=== PATIENT | male | born 1995 | race Caucasian/White ===

== ENCOUNTER 2018-05-04 16:24 | Emergency (ER) | payer SELFPAY ==
[~2018-05-04] VITALS: Ht 182.9 cm; Wt 113.4 kg
[2018-05-04] MEDS ORDERED: ONDANSETRON ODT 4 MG TAB.RAPDIS ONE (16:45)
[2018-05-04 16:57] VITALS: BP 167/71
[2018-05-04] MEDS ORDERED: KETOROLAC 60 MG/2 ML VIAL. IM ONE (17:00)
[2018-05-04] MEDS ORDERED: ONDANSETRON ODT 4 MG TAB.RAPDIS PO ONE (17:00)
[2018-05-04 17:07] LABS: BARBITURATES NEG (NEG); BENZODIAZEPINES NEG (NEG); CANNABINOIDS NEG (NEG); COCAINE NEG (NEG); METHADONE NEG (NEG); OPIATES NEG (NEG); PHENCYCLIDINE NEG (NEG)
[2018-05-04 17:08] LABS: CLARITY,URINE CLEAR; COLOR,URINE YELLOW; GLUCOSE,URINE NEG (NEG)
[2018-05-04 17:09] LABS: BACTERIA,URINE 0 /HPF (0-FEW); BILIRUBIN,URINE NEG (NEG); NITRITE,URINE NEG (NEG); RBC,URINE 0 /HPF (0-2); SQUAMOUS EPITHELIAL CELL,UR OCC /LPF; UROBILINOGEN,URINE 0.2 mg/dL (0.2 mg/dL); WBC,URINE OCC /HPF (0-4)
[2018-05-04 17:10] LABS: AMPHETAMINE/METHAMPHETAMINE NEG (NEG)
--- NOTE | 2018-05-04 17:26 | PHYS DOC ---
Past History Past Medical History: No Pertinent History Past Surgical History: Appendectomy Alcohol Use: None Drug Use: None Adult General Chief Complaint Chief Complaint: TESTICULAR PAIN OR INJURY HPI HPI Patient is a 22 year old male who presents with complaining of testicular pain. Patient complaining of gradual onset of left testicular pain for the last 2 weeks that getting worse for the last 3 days as a constant sharp pain and rated his pain 10 over 10. Patient denies injury, discharge, history of the same pain or STD, abdominal pain and nausea and vomiting. Review of Systems Review of Systems Constitutional: Denies fever or chills [] Eyes: Denies change in visual acuity, redness, or eye pain [] HENT: Denies nasal congestion or sore throat [] Respiratory: Denies cough or shortness of breath [] Cardiovascular: No additional information not addressed in HPI [] GI: Denies abdominal pain, nausea, vomiting, bloody stools or diarrhea [] : Denies dysuria or hematuria [] Musculoskeletal: Denies back pain or joint pain [] Integument: Denies rash or skin lesions [] Neurologic: Denies headache, focal weakness or sensory changes [] Endocrine: Denies polyuria or polydipsia [] All other systems were reviewed and found to be within normal limits, except as documented in this note. Current Medications Current Medications Current Medications Medications (Trade) Dose Ordered Sig/Magalie Start Time Stop Time Status Last Admin Dose Admin Ketorolac Tromethamine (Toradol Im) 60 mg 1X ONCE 05/04/18 17:00 05/04/18 17:02 DC 05/04/18 17:17 60 MG Ondansetron HCl (Zofran Odt) 4 mg STK-MED ONCE 05/04/18 16:45 05/04/18 16:46 DC Allergies Allergies Allergies Coded Allergies Type Severity Reaction Last Updated Verified metoclopramide Allergy Unknown 05/04/18 Yes Physical Exam Physical Exam Constitutional: Well developed, well nourished, moderate acute distress, non- toxic appearance. [] HENT: Normocephalic, atraumatic Eyes: PERRLA, EOMI, conjunctiva normal, no discharge. [] Neck: Normal range of motion, no tenderness, supple, no stridor. [] Cardiovascular:Heart rate regular rhythm, no murmur [] Lungs & Thorax: Bilateral breath sounds clear to auscultation [] Abdomen: Bowel sounds normal, soft, no tenderness, no masses, no pulsatile masses. 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 [] Back: No tenderness, no CVA tenderness. [] Extremities: No tenderness, no cyanosis, no clubbing, ROM intact, no edema. [] Neurologic: Alert and oriented X 3, normal motor function, normal sensory function, no focal deficits noted. [] Psychologic: Affect anxious, judgement normal, mood normal. [] Current Patient Data Vital Signs Vital Signs Date Time Temp Pulse Resp B/P (MAP) Pulse Ox O2 Delivery O2 Flow Rate FiO2 05/04/18 16:57 98.3 118 18 97 Lab Results Laboratory Tests Test 05/04/18 16:40 Urine Collection Type Unknown Urine Color Yellow Urine Clarity Clear Urine pH 8.5 Urine Specific [place] 1.020 Urine Protein Trace (NEG-TRACE) Urine Glucose (UA) Neg mg/dL (NEG) Urine Ketones (Stick) Neg mg/dL (NEG) Urine Blood Neg (NEG) Urine Nitrite Neg (NEG) Urine Bilirubin Neg (NEG) Urine Urobilinogen Dipstick 0.2 mg/dL (0.2 mg/dL) Urine Leukocyte Esterase Neg (NEG) Urine RBC 0 /HPF (0-2) Urine WBC Occ /HPF (0-4) Urine Squamous Epithelial Cells Occ /LPF Urine Bacteria 0 /HPF (0-FEW) Urine Mucus Mod /LPF Urine Opiates Screen Neg (NEG) Urine Methadone Screen Neg (NEG) Urine Barbiturates Neg (NEG) Urine Phencyclidine Screen Neg (NEG) Urine Amphetamine/Methamphetamine Neg (NEG) Urine Benzodiazepines Screen Neg (NEG) Urine Cocaine Screen Neg (NEG) Urine Cannabinoids Screen Neg (NEG) Urine Ethyl Alcohol Neg (NEG) EKG EKG [] Radiology/Procedures Radiology/Procedures [address] [address] IMAGING REPORT Signed PATIENT: RONALD MARLOW ACCOUNT: [id number] : 1995 LOCATION: ER AGE: 22 SEX: M EXAM STATUS: REG ER ORD. PHYSICIAN: DHARA SANTOYO MD REASON: left testicular pain PROCEDURE: TESTICULAR/SCROTUM Indication:LEFT TESTICULAR PAIN TECHNIQUE: Grayscale, color Doppler and spectral waveform is of the testicles obtained. COMPARISON:None FINDINGS: The right testicle measures 4.4 x 2.5 x 3.8 cm and is homogeneous in echogenicity without focal lesion. Right testicle demonstrates evidence of blood flow. The epididymal head is in normal limits with a 4 mm simple cyst in the epididymal head. The left testicle measures 4.4 x 2.4 x 3.0 cm and is homogeneous in echogenicity without focal lesion. The left testicle demonstrates evidence of blood flow. The epididymal head is within normal limits with a 4 mm simple appearing cyst in the epididymal head. No hydrocele bilaterally. IMPRESSION: 1. No focal testicular lesion. 2. Bilateral testicles demonstrate evidence of blood flow. Electronically signed by: Toney Soto DO (05/04/2018 5:29 PM) [facility] DICTATED AND SIGNED BY: TONEY SOTO DO DATE: 05/04/181726 CC: DHARA SANTOYO MD; PCP,OSIEL ~ Course & Med Decision Making Course & Med Decision Making Pertinent Labs and Imaging studies reviewed. (See chart for details) Evaluation of patient in ER showed 22-year-old male patient with complaining of left scapular pain for 2 weeks that getting worse for 3 days. Patient had unremarkable exam of to school and except for sensitivity with touch of his testicle. Testicle ultrasound showed epididymal cyst without sign of other problems. Plan to discharge patient home with diagnose of left testicular pain. Dragon Disclaimer Dragon Disclaimer This electronic medical record was generated, in whole or in part, using a voice recognition dictation system. Departure Departure: Impression: Primary Impression: Left testicular pain Additional Impression: Epididymal cyst Disposition: HOME, SELF-CARE (at 1742) Condition: IMPROVED Referrals: PCPOSIEL (PCP) Patient Instructions: Epididymitis Additional Instructions: Drink plenty of liquids Follow-up with your primary care physician in 3-5 days Return to ER if not getting better Scripts Naproxen (NAPROSYN) 500 Mg Tablet 500 MG PO BID for pain, #20 TAB Prov: DHARA SANTOYO MD 05/04/18 Ciprofloxacin Hcl (CIPRO) 250 Mg Tablet 1 TAB PO BID for urinary tract infection, #14 TAB Prov: DHARA SANTOYO MD 05/04/18 Problem Qualifiers DHARA SANTOYO MD May 04, 2018 17:26
--- NOTE | 2018-05-04 17:32 | RAD ---
Indication:LEFT TESTICULAR PAIN TECHNIQUE: Grayscale, color Doppler and spectral waveform is of the testicles obtained. COMPARISON:None FINDINGS: The right testicle measures 4.4 x 2.5 x 3.8 cm and is homogeneous in echogenicity without focal lesion. Right testicle demonstrates evidence of blood flow. The epididymal head is in normal limits with a 4 mm simple cyst in the epididymal head. The left testicle measures 4.4 x 2.4 x 3.0 cm and is homogeneous in echogenicity without focal lesion. The left testicle demonstrates evidence of blood flow. The epididymal head is within normal limits with a 4 mm simple appearing cyst in the epididymal head. No hydrocele bilaterally. IMPRESSION: 1. No focal testicular lesion. 2. Bilateral testicles demonstrate evidence of blood flow. Electronically signed by: oTney Hicks DO (05/04/2018 5:29 PM) [facility]
[2018-05-04] MEDS ORDERED: NAPR-683 PO (17:47)
[2018-05-04] MEDS ORDERED: CIPR250T30 PO (17:47)
== END 2018-05-04 17:58 | disposition home or self-care (01) ==
LOC: ER 16:24
DX: N50.3 Cyst of epididymis (principal); Z88.8 Allergy status to other drugs, medicaments and biological substances
CPT/HCPCS: 36415; 76870; 80307; 81001; 96372; 99284; J1885; Q0162

== ENCOUNTER 2018-12-24 14:34 | Emergency (ER) | payer SELFPAY ==
[~2018-12-24] VITALS: Ht 182.9 cm; Wt 104.3 kg
[~2018-12-24 14:34] MED LIST: CIPR250T30 PO; NAPR-683 PO
[2018-12-24] MEDS ORDERED: ASPIRIN 81 MG TAB.CHEW PO ONE (15:00)
[2018-12-24 15:01] LABS: BASO % 0 % (0-3); EOS % 0 % (0-3); HEMATOCRIT 44.5 % (39.0-53.0); HEMOGLOBIN 15.1 g/dL (13.0-17.5); LYMPH # 1.8 x10^3/uL (1.0-4.8); LYMPH % 18 % (24-48); MEAN CORPUSCULAR HEMOGLOBIN 30 pg (25-35); MEAN CORPUSCULAR HGB CONC 34 g/dL (31-37); MEAN CORPUSCULAR VOLUME 89 fL (79-100); MONO # 0.9 x10^3/uL (0.0-1.1); MONO % 9 % (0-9); NEUT # 7.2 x10^3uL (1.8-7.7); NEUT % 73 % (31-73); PLATELET COUNT 234 x10^3/uL (140-400); RED CELL DISTRIBUTION WIDTH 13.1 % (11.5-14.5); WHITE BLOOD COUNT 9.8 x10^3/uL (4.0-11.0)
--- NOTE | 2018-12-24 15:08 | RAD ---
AP and Lateral Views of the Chest 12/24/2018 2:47 PM Indication: Chest pain Comparison: None Findings: No pneumothorax or pleural effusion is seen. Mild linear opacity in the left lung base may represent discoid atelectasis or mild scarring. No other focal consolidative infiltrates is seen. Heart size is normal. Bony thorax is grossly intact. IMPRESSION: Possible mild left basilar discoid atelectasis or scarring. Otherwise unremarkable chest radiograph Electronically signed by: Hilario Smith MD (12/24/2018 3:05 PM) [facility]
[2018-12-24 15:14] LABS: ALBUMIN 4.8 g/dL (3.4-5.0); ALBUMIN/GLOBULIN RATIO 1.3 (1.0-1.7); CALCIUM 9.7 mg/dL (8.5-10.1); CREATININE 0.9 mg/dL (0.7-1.3); GFR 107.6; POTASSIUM 3.4 mmol/L (3.5-5.1); TOTAL BILIRUBIN 0.5 mg/dL (0.2-1.0); TOTAL PROTEIN 8.5 g/dL (6.4-8.2)
[2018-12-24] MEDS ORDERED: IV NORMAL SALINE 1,000ML 1,000 ML IV ONE (15:15)
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
[2018-12-24 15:30] LABS: AMPHETAMINE/METHAMPHETAMINE NEG (NEG); BARBITURATES NEG (NEG); BENZODIAZEPINES NEG (NEG); CANNABINOIDS NEG (NEG); COCAINE NEG (NEG); METHADONE NEG (NEG); OPIATES NEG (NEG); PHENCYCLIDINE NEG (NEG)
[2018-12-24 15:33] LABS: BACTERIA,URINE 0 /HPF (0-FEW); BILIRUBIN,URINE NEG (NEG); CLARITY,URINE CLEAR; COLOR,URINE YELLOW; GLUCOSE,URINE NEG (NEG); NITRITE,URINE NEG (NEG); RBC,URINE 0 /HPF (0-2); UROBILINOGEN,URINE 0.2 mg/dL (0.2 mg/dL); WBC,URINE 0 /HPF (0-4)
[2018-12-24] MEDS ORDERED: HYDR25TA PO (15:59)
[2018-12-24 16:13] VITALS: BP 143/82
[2018-12-24] MEDS ORDERED: ACETAMINOPHEN 325 MG TABLET PO ONE (16:15)
--- NOTE | 2018-12-24 23:31 | EKG ---
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
== END 2018-12-24 16:12 | disposition home or self-care (01) ==
LOC: ER 14:34
DX: R07.89 Other chest pain (principal); M54.5 Low back pain; R11.0 Nausea; G89.29 Other chronic pain; Z79.899 Other long term (current) drug therapy; Z79.82 Long term (current) use of aspirin; Z88.8 Allergy status to other drugs, medicaments and biological substances
CPT/HCPCS: 36415; 71046; 80053; 80307; 81001; 84484; 85025; 93005; 99285-25; J7030

== ENCOUNTER 2019-01-09 20:45 | Emergency (ER) | payer SELFPAY ==
[~2019-01-09] VITALS: Ht 180.3 cm; Wt 103.0 kg
[~2019-01-09 20:45] MED LIST changes: +HYDR25TA PO
--- NOTE | 2019-01-09 20:57 | ED.ADGEN ---
Past History Past Medical History: Anxiety, Depression, Migraines, Sciatica, Other Additional Past Medical Histor: Chronic pain Past Surgical History: Appendectomy Alcohol Use: Rarely Drug Use: Marijuana Adult General Chief Complaint Chief Complaint ".. I had some more brain zaps.. or shock like sensations to my head... ".. " I had the same thing earlier this month.. " .. " I have not been able to see Dr. Strauss yet... "'''.. After these Zaps ..I get confused.." HPI HPI Patient is a 23 year old male who presents with above hx and complaints headache after "Head Zaps". Patient has had similar instances in the past most recently one on 12/24 of this month. Patient does have a past history of anxiety, chronic pain, chronic lumbar and sciatic pain, and migraines. Patient has not followed up with [facility] A since last visit.. Patient in the past was depended on narcotics for his chronic pain and also benzodiazepines for muscle spasms. P atient reportedly weaned himself off all anxiety meds. Patient reportedly has had previous CT of head which was negative. Reportedly a prior CT and MRI of lumbar spine shows degenerative joint changes and disc disease with sciatica. Patient denies any history immunosuppression, travel or specific ill contacts. No recent trauma. No specific history of seizure disorder. Review of Systems Review of Systems Constitutional: Denies fever or chills [] Eyes: Denies change in visual acuity, redness, or eye pain [] HENT: Denies nasal congestion or sore throat [] Respiratory: Denies cough or shortness of breath [] Cardiovascular: No additional information not addressed in HPI [] GI: Denies abdominal pain, nausea, vomiting, bloody stools or diarrhea [] : Denies dysuria or hematuria [] Musculoskeletal: Denies back pain or joint pain [] Integument: Denies rash or skin lesions [] Neurologic: Complaints of headache after "head zaps", focal weakness or sensory changes [] Endocrine: Denies polyuria or polydipsia [] All other systems were reviewed and found to be within normal limits, except as documented in this note. Family History Family History Noncontributory Current Medications Current Medications Current Medications Medications (Trade) Dose Ordered Sig/Magalie Start Time Stop Time Status Last Admin Dose Admin Acetaminophen (Tylenol) 1,000 mg 1X ONCE 01/09/19 21:30 01/09/19 21:31 DC 01/09/19 21:21 1,000 MG Enoxaparin Sodium (Lovenox 100mg Syringe) 100 mg 1X ONCE 01/09/19 22:30 01/09/19 22:31 DC 01/09/19 22:57 100 MG Fentanyl Citrate (Fentanyl 2ml Vial) 50 mcg 1X ONCE 01/09/19 23:30 01/09/19 23:31 DC 01/09/19 22:58 50 MCG Lactated Ringer's 1,000 ml @ 1,000 mls/hr Q1H 01/09/19 21:30 01/09/19 22:29 DC 01/09/19 21:22 1,000 MLS/HR Lorazepam (Ativan) 1 mg 1X ONCE 01/09/19 21:30 01/09/19 21:31 DC 01/09/19 21:21 1 MG Allergies Allergies Allergies Coded Allergies Type Severity Reaction Last Updated Verified metoclopramide Allergy Intermediate 01/09/19 Yes Physical Exam Physical Exam Constitutional: Well developed, well nourished, moderate acute distress, non- toxic appearance. [] HENT: Normocephalic, atraumatic, bilateral external ears normal, oropharynx moist, no oral exudates, nose normal. [] Eyes: PERRLA, EOMI, conjunctiva normal, no discharge. [] Neck: Normal range of motion, no tenderness, supple, no stridor. [] Cardiovascular: Tachycardia Heart rate regular rhythm, no murmur [] Lungs & Thorax: Bilateral breath sounds equal at apexes on auscultation [] Abdomen: Bowel sounds normal, soft, no tenderness, no masses, no pulsatile masses. [] Old surgery scar. Skin: Warm, dry, no erythema, no rash. [] Back: No tenderness, no CVA tenderness. [] Extremities: No tenderness, no cyanosis, no clubbing, ROM intact, no edema. [] Neurologic: Alert and oriented X 3, normal motor function, normal sensory function, no focal deficits noted. Right-hand dominant. No drift. Greenhouse [employer] Nursery Transplanter equal. DTRs +2 patella and brachial. Psychologic: Affect anxious, judgement normal, mood normal. [] Current Patient Data Vital Signs Vital Signs Date Time Temp Pulse Resp B/P (MAP) Pulse Ox O2 Delivery O2 Flow Rate FiO2 01/09/19 23:06 104 18 139/94 (109) 98 Room Air 01/09/19 20:57 99.1 Lab Results Laboratory Tests Test 01/09/19 20:55 01/09/19 21:30 Urine Collection Type Unknown Urine Color Straw Urine Clarity Clear Urine pH 7.0 Urine Specific [place] 1.010 Urine Protein Neg (NEG-TRACE) Urine Glucose (UA) Neg mg/dL (NEG) Urine Ketones (Stick) Neg mg/dL (NEG) Urine Blood Neg (NEG) Urine Nitrite Neg (NEG) Urine Bilirubin Neg (NEG) Urine Urobilinogen Dipstick 0.2 mg/dL (0.2 mg/dL) Urine Leukocyte Esterase Neg (NEG) Urine RBC 0 /HPF (0-2) Urine WBC 0 /HPF (0-4) Urine Squamous Epithelial Cells None /LPF Urine Bacteria 0 /HPF (0-FEW) Urine Opiates Screen Neg (NEG) Urine Methadone Screen Neg (NEG) Urine Barbiturates Neg (NEG) Urine Phencyclidine Screen Neg (NEG) Urine Amphetamine/Methamphetamine Neg (NEG) Urine Benzodiazepines Screen Neg (NEG) Urine Cocaine Screen Neg (NEG) Urine Cannabinoids Screen Neg (NEG) Urine Ethyl Alcohol Pos (NEG) White Blood Count 8.4 x10^3/uL (4.0-11.0) Red Blood Count 5.53 x10^6/uL (4.30-5.70) Hemoglobin 16.7 g/dL (13.0-17.5) Hematocrit 49.1 % (39.0-53.0) Mean Corpuscular Volume 89 fL (79-100) Mean Corpuscular Hemoglobin 30 pg (25-35) Mean Corpuscular Hemoglobin Concent 34 g/dL (31-37) Red Cell Distribution Width 13.2 % (11.5-14.5) Platelet Count 242 x10^3/uL (140-400) Neutrophils (%) (Auto) 78 % (31-73) H Lymphocytes (%) (Auto) 15 % (24-48) L Monocytes (%) (Auto) 6 % (0-9) Eosinophils (%) (Auto) 0 % (0-3) Basophils (%) (Auto) 0 % (0-3) Neutrophils # (Auto) 6.5 x10^3uL (1.8-7.7) Lymphocytes # (Auto) 1.3 x10^3/uL (1.0-4.8) Monocytes # (Auto) 0.5 x10^3/uL (0.0-1.1) Eosinophils # (Auto) 0.0 x10^3/uL (0.0-0.7) Basophils # (Auto) 0.0 x10^3/uL (0.0-0.2) Erythrocyte Sedimentation Rate 7 (0-15) Prothrombin Time 10.5 SEC (9.4-11.4) Prothrombin Time INR 1.0 (0.9-1.1) Activated Partial Thromboplast Time 29 SEC (23-33) D-Dimer (Lay) 0.39 mg/L (0.00-0.50) Sodium Level 144 mmol/L (136-145) Potassium Level 3.8 mmol/L (3.5-5.1) Chloride Level 105 mmol/L (98-107) Carbon Dioxide Level 24 mmol/L (21-32) Anion Gap 15 (6-14) H Blood Urea Nitrogen 11 mg/dL (8-26) Creatinine 0.9 mg/dL (0.7-1.3) Estimated GFR (Cockcroft-Gault) 106.5 Glucose Level 109 mg/dL (70-99) H Calcium Level 9.9 mg/dL (8.5-10.1) Magnesium Level 2.0 mg/dL (1.8-2.4) Total Bilirubin 0.3 mg/dL (0.2-1.0) Direct Bilirubin 0.1 mg/dL (0.0-0.2) Aspartate Amino Transferase (AST) 19 U/L (15-37) Alanine Aminotransferase (ALT) 45 U/L (16-63) Alkaline Phosphatase 119 U/L (46-116) H Creatine Kinase 154 U/L (39-308) Troponin I Quantitative < 0.017 ng/mL (0-0.055) Total Protein 8.8 g/dL (6.4-8.2) H Albumin 5.1 g/dL (3.4-5.0) H Ethyl Alcohol Level 17 mg/dL (0-10) H EKG EKG My interpretation EKG shows a sinus tachycardia at 109 bpm. No findings acute STEMI but some anterior lateral changes[] Radiology/Procedures Radiology/Procedures [][address] [id number] IMAGING REPORT Signed PATIENT: RONALD MARLOW ACCOUNT: [id number] : 1995 LOCATION: ER AGE: 23 SEX: M EXAM STATUS: REG ER ORD. PHYSICIAN: GOPI HENAO MD REASON: Head ache, Brain "Zaps" with confusion PROCEDURE: CT HEAD WO CONTRAST Exam: CT head INDICATION: Headache TECHNIQUE: Sequential axial images through the head were obtained without the administration of IV contrast. Comparisons: None FINDINGS: Hypodensity in the area of the left sigmoid/transverse sinus. Additionally there is a area of rounded hyperdensity series 2 image 12 just above this area measuring approximately 1.9 cm in diameter. No acute vascular territory infarction is identified. Rowland-white distinction is preserved. The ventricular system is within normal limits without compression hydrocephalus. The basal cisterns are well maintained. The visualized portions of the paranasal sinuses and mastoid air cells are well-pneumatized. No acute fractures. IMPRESSION: In the left posterior cranial fossa there is a round hyperdensity measuring 1.8 cm in diameter with possible hypodensity within the expected location of the sigmoid/transverse sinus. Differential considerations include sinus thrombosis. Given the possibility of a rounded mass lesion MRI brain with contrast if possible is recommended for further evaluation. Exposure: One or more of the following in the visualized dose reduction techniques were utilized for this examination: 1. Automated exposure control 2. Adjustment of the MA and/or KV according to patient size 3. Use of iterative of reconstructive technique FOR INTERNAL CODING PURPOSES Critical result: Findings discussed with GOPI HENAO at 01/09/2019 9:39 PM. RESULT CODE: (C) Electronically signed by: Thuan Lehman MD (01/09/2019 9:41 PM) [facility] DICTATED AND SIGNED BY: THUAN LEHMAN MD DATE: 01/09/192140 CC: GOPI HENAO MD; ALICIA FIGUEROA MD ~ Course & Med Decision Making Course & Med Decision Making Pertinent Labs and Imaging studies reviewed. (See chart for details) Discussed presentation, testing and treatment plan with Dr. Cross. Will transfer to [facility] for MRI to evaluate for possible sigmoid sinus thrombosis versus mass. [] Final Impression Final Impression 1. Headache " Brain Zaps"[] 2. Possible sigmoid sinus thrombosis versus mass- CT 3. Elevated T Protein and Albumen 8.8/5.1 4. Hx of Anxiety Disorder 5. Hx. of Chronic Pain- Sciatica Dragon Disclaimer Dragon Disclaimer This electronic medical record was generated, in whole or in part, using a voice recognition dictation system. Dragon Disclaimer This chart was dictated in whole or in part using Voice Recognition software in a busy, high-work load, and often noisy Emergency Department environment. It may contain unintended and wholly unrecognized errors or omissions. GOPI HENAO MD Jan 09, 2019 20:57
--- NOTE | 2019-01-09 21:20 | EKG ---
[address] [address] Test Date: 2019-01-09 Test Time: 21:18:07 Pat Name: RONALD MARLOW Department: Room: Gender: M Color Dipper: : 1995 Requested By: GOPI HENAO Order Number: [id number] Reading MD: Measurements Intervals [place] Rate: 109 P: -7 [place]: 152 QRS: 31 QRSD: 92 T: -9 QT: 300 QTc: 405 Interpretive Statements SINUS TACHYCARDIA LEFT ATRIAL ABNORMALITY QRS(T) CONTOUR ABNORMALITY CONSIDER ANTEROLATERAL MYOCARDIAL DAMAGE T ABNORMALITY IN INFERIOR LEADS ABNORMAL ECG RI6.01 Compared to ECG 12/24/2018 14:41:30 Atrial abnormality now present T-wave abnormality now present
[2019-01-09] MEDS ORDERED: LORazepam 1 MG TABLET PO ONE (21:30)
[2019-01-09] MEDS ORDERED: IV RINGERS SOLUTION,LACTATED 1,000 ML IV SCH (21:30)
[2019-01-09] MEDS ORDERED: ACETAMINOPHEN 500 MG TABLET PO ONE (21:30)
[2019-01-09 21:34] LABS: BARBITURATES NEG (NEG); BENZODIAZEPINES NEG (NEG); CANNABINOIDS NEG (NEG); COCAINE NEG (NEG); METHADONE NEG (NEG); OPIATES NEG (NEG); PHENCYCLIDINE NEG (NEG)
[2019-01-09 21:42] LABS: BACTERIA,URINE 0 /HPF (0-FEW); BILIRUBIN,URINE NEG (NEG); CLARITY,URINE CLEAR; COLOR,URINE STRAW; GLUCOSE,URINE NEG (NEG); NITRITE,URINE NEG (NEG); RBC,URINE 0 /HPF (0-2); UROBILINOGEN,URINE 0.2 mg/dL (0.2 mg/dL); WBC,URINE 0 /HPF (0-4)
--- NOTE | 2019-01-09 21:44 | RAD ---
Exam: CT head INDICATION: Headache TECHNIQUE: Sequential axial images through the head were obtained without the administration of IV contrast. Comparisons: None FINDINGS: Hypodensity in the area of the left sigmoid/transverse sinus. Additionally there is a area of rounded hyperdensity series 2 image 12 just above this area measuring approximately 1.9 cm in diameter. No acute vascular territory infarction is identified. Rowland-white distinction is preserved. The ventricular system is within normal limits without compression hydrocephalus. The basal cisterns are well maintained. The visualized portions of the paranasal sinuses and mastoid air cells are well-pneumatized. No acute fractures. IMPRESSION: In the left posterior cranial fossa there is a round hyperdensity measuring 1.8 cm in diameter with possible hypodensity within the expected location of the sigmoid/transverse sinus. Differential considerations include sinus thrombosis. Given the possibility of a rounded mass lesion MRI brain with contrast if possible is recommended for further evaluation. Exposure: One or more of the following in the visualized dose reduction techniques were utilized for this examination: 1. Automated exposure control 2. Adjustment of the MA and/or KV according to patient size 3. Use of iterative of reconstructive technique FOR INTERNAL CODING PURPOSES Critical result: Findings discussed with GOPI HENAO at 01/09/2019 9:39 PM. RESULT CODE: (C) Electronically signed by: Thuan Huitron MD (01/09/2019 9:41 PM) [facility]
[2019-01-09 21:52] LABS: AMPHETAMINE/METHAMPHETAMINE NEG (NEG)
[2019-01-09 22:04] LABS: BASO % 0 % (0-3); EOS % 0 % (0-3); HEMATOCRIT 49.1 % (39.0-53.0); HEMOGLOBIN 16.7 g/dL (13.0-17.5); LYMPH # 1.3 x10^3/uL (1.0-4.8); LYMPH % 15 % (24-48); MEAN CORPUSCULAR HEMOGLOBIN 30 pg (25-35); MEAN CORPUSCULAR HGB CONC 34 g/dL (31-37); MEAN CORPUSCULAR VOLUME 89 fL (79-100); MONO # 0.5 x10^3/uL (0.0-1.1); MONO % 6 % (0-9); NEUT # 6.5 x10^3uL (1.8-7.7); NEUT % 78 % (31-73); PLATELET COUNT 242 x10^3/uL (140-400); RED BLOOD COUNT 5.53 x10^6/uL (4.30-5.70); RED CELL DISTRIBUTION WIDTH 13.2 % (11.5-14.5); WHITE BLOOD COUNT 8.4 x10^3/uL (4.0-11.0)
[2019-01-09 22:06] LABS: ALBUMIN 5.1 g/dL (3.4-5.0); CALCIUM 9.9 mg/dL (8.5-10.1); CREATININE 0.9 mg/dL (0.7-1.3); DIRECT BILIRUBIN 0.1 mg/dL (0.0-0.2); GFR 106.5; POTASSIUM 3.8 mmol/L (3.5-5.1); TOTAL BILIRUBIN 0.3 mg/dL (0.2-1.0); TOTAL PROTEIN 8.8 g/dL (6.4-8.2)
[2019-01-09] MEDS ORDERED: ENOXAPARIN ** NOTE DOSE ** SYRINGE SQ ONE (22:30)
[2019-01-09 23:06] VITALS: BP 139/94
[2019-01-09 23:16] LABS: SEDIMENTATION RATE 7 (0-15)
== END 2019-01-09 23:45 | disposition short-term general hospital (02) ==
LOC: ER 20:45
DX: G43.909 Migraine, unspecified, not intractable, without status migrainosus (principal); R79.82 Elevated C-reactive protein (CRP); R77.0 Abnormality of albumin; F41.9 Anxiety disorder, unspecified; G89.29 Other chronic pain; M54.5 Low back pain; F32.9 Major depressive disorder, single episode, unspecified; Z90.89 Acquired absence of other organs; Z88.8 Allergy status to other drugs, medicaments and biological substances
CPT/HCPCS: 36415; 70450; 80048; 80076; 80307; 81001; 82550; 83735; 84146; 84443; 84484; 85025; 85379; 85610; 85651; 85730; 93005; 96372; 96374; 99285; G0480; J1650; J3010; J7120

== ENCOUNTER 2019-05-14 02:11 | Emergency (ER) | payer OTHER ==
[~2019-05-14] VITALS: Ht 180.3 cm; Wt 103.0 kg
[2019-05-14 02:11] VITALS: BP 139/94
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
[2019-05-14] MEDS ORDERED: oxyCODONE/APAP 5/325 1 TAB TABLET PO ONE (03:00)
== END 2019-05-14 02:50 | disposition home or self-care (01) ==
LOC: ER 02:11
DX: G89.29 Other chronic pain (principal); M54.5 Low back pain; F11.20 Opioid dependence, uncomplicated; F41.9 Anxiety disorder, unspecified; F32.9 Major depressive disorder, single episode, unspecified; G43.909 Migraine, unspecified, not intractable, without status migrainosus; Z90.89 Acquired absence of other organs; Z88.8 Allergy status to other drugs, medicaments and biological substances
CPT/HCPCS: 99281; 99283

== ENCOUNTER 2019-05-15 06:45 | Emergency (ER) | payer OTHER ==
[~2019-05-15] VITALS: Ht 182.9 cm; Wt 101.1 kg
[2019-05-15 06:45] VITALS: BP 141/81
[2019-05-15] MEDS ORDERED: KETOROLAC 15 MG/ML VIAL. IVP ONE (07:30)
[2019-05-15 07:55] LABS: BASO # 0.1 x10^3/uL (0.0-0.2); BASO % 1 % (0-3); EOS # 0.1 x10^3/uL (0.0-0.7); EOS % 1 % (0-3); HEMATOCRIT 46.5 % (39.0-53.0); HEMOGLOBIN 15.9 g/dL (13.0-17.5); LYMPH # 2.8 x10^3/uL (1.0-4.8); LYMPH % 34 % (24-48); MEAN CORPUSCULAR HEMOGLOBIN 31 pg (25-35); MEAN CORPUSCULAR HGB CONC 34 g/dL (31-37); MEAN CORPUSCULAR VOLUME 91 fL (79-100); MONO # 0.8 x10^3/uL (0.0-1.1); MONO % 10 % (0-9); NEUT # 4.3 x10^3uL (1.8-7.7); NEUT % 54 % (31-73); PLATELET COUNT 217 x10^3/uL (140-400); RED BLOOD COUNT 5.09 x10^6/uL (4.30-5.70); RED CELL DISTRIBUTION WIDTH 13.4 % (11.5-14.5)
--- NOTE | 2019-05-15 08:19 | RAD ---
TESTICULAR/SCROTUM History: Right testicular pain. Realtime ultrasonography of the scrotum was performed. Comparison: None. The bilateral testicles demonstrate homogeneous parenchyma without evidence of mass, calcification, or increased Doppler flow. 5 mm right epididymal head cyst. The epididymides are otherwise normal. The right testicle measures 4.4 x 3.5 x 2.4 cm. The left testicle measures 4.3 x 3.4 x 2.5 cm. Trace bilateral hydrocele. Left varicocele. Impression: 1. No evidence of testicular torsion. 2. Trace bilateral hydroceles. 3. Left varicocele. Electronically signed by: Roberto Mays MD (05/15/2019 8:16 AM) [id number]
[2019-05-15 08:52] LABS: CREATININE 0.8 mg/dL (0.7-1.3); POTASSIUM 3.8 mmol/L (3.5-5.1)
[2019-05-15 08:57] LABS: BILIRUBIN,URINE NEG (NEG); CLARITY,URINE CLEAR; COLOR,URINE YELLOW; GLUCOSE,URINE NEG (NEG); NITRITE,URINE NEG (NEG); UROBILINOGEN,URINE 0.2 mg/dL (0.2 mg/dL)
[2019-05-15 08:58] LABS: BACTERIA,URINE 0 /HPF (0-FEW); RBC,URINE 0 /HPF (0-2); WBC,URINE RARE /HPF (0-4)
--- NOTE | 2019-05-15 08:59 | PHYS DOC ---
Past History Past Medical History: Anxiety, Depression, Migraines, Sciatica, Other Additional Past Medical Histor: Chronic back pain, lumbar myopathy, herniated L4 disc Past Surgical History: Appendectomy, Tonsillectomy Smoking: Cigarettes Alcohol Use: Occasionally Drug Use: Marijuana Adult General Chief Complaint Chief Complaint: TESTICULAR PAIN OR INJURY HPI HPI 23-year-old male presents with report of waking this morning with significant pain to right testes. Denies known trauma. Denies fever or chills. Denies dysuria or penile discharge. Denies rash. Denies swelling. Denies prior history of similar. Review of Systems Review of Systems Constitutional: Denies fever or chills Eyes: Denies redness or eye pain HENT: Denies nasal congestion or sore throat Respiratory: Denies cough or shortness of breath Cardiovascular: Denies chest pain or palpitations GI: Denies abdominal pain, nausea, or vomiting : Denies dysuria or hematuria; reports right testicular pain Musculoskeletal: Denies back pain or joint pain Integument: Denies rash or skin lesions Neurologic: Denies headache, focal weakness or sensory changes Complete systems were reviewed and found to be within normal limits, except as documented in this note. Current Medications Current Medications Current Medications Medications (Trade) Dose Ordered Sig/Magalie Start Time Stop Time Status Last Admin Dose Admin Fentanyl Citrate (Fentanyl 2ml Vial) 100 mcg STK-MED ONCE 05/15/19 08:34 05/15/19 08:34 DC Ketorolac Tromethamine (Toradol 15mg Vial) 15 mg 1X ONCE 05/15/19 07:30 05/15/19 07:31 DC 05/15/19 07:23 15 MG Allergies Allergies Allergies Coded Allergies Type Severity Reaction Last Updated Verified metoclopramide Allergy Intermediate 01/09/19 Yes Physical Exam Physical Exam Constitutional: Well developed, well nourished, uncomfortable and in pain, non- toxic appearance HENT: Normocephalic, atraumatic, oropharynx moist Eyes: Conjunctiva normal, no discharge Neck: Normal range of motion, no tenderness, supple Cardiovascular: Heart rate normal, regular rhythm Lungs & Thorax: Bilateral breath sounds clear to auscultation, no wheezing Abdomen: Soft, no tenderness, no rebound tenderness/distention/guarding : External genitalia normal, cremasteric reflex intact, right testicular pain on palpation, no herniation noted, no significant swelling, note scrotal wall thickening, no rash, no meatal blood or discharge Skin: Warm, dry, no erythema, no rash Back: No tenderness, no CVA tenderness Extremities: No tenderness, ROM intact, no edema Neurologic: Alert and oriented X 3, no focal deficits noted Psychologic: Affect normal, judgment normal Current Patient Data Vital Signs Vital Signs Date Time Temp Pulse Resp B/P (MAP) Pulse Ox O2 Delivery O2 Flow Rate FiO2 05/15/19 06:45 98.0 95 18 141/81 (101) 98 Room Air Lab Results Laboratory Tests Test 05/15/19 07:41 White Blood Count 8.0 x10^3/uL (4.0-11.0) Red Blood Count 5.09 x10^6/uL (4.30-5.70) Hemoglobin 15.9 g/dL (13.0-17.5) Hematocrit 46.5 % (39.0-53.0) Mean Corpuscular Volume 91 fL (79-100) Mean Corpuscular Hemoglobin 31 pg (25-35) Mean Corpuscular Hemoglobin Concent 34 g/dL (31-37) Red Cell Distribution Width 13.4 % (11.5-14.5) Platelet Count 217 x10^3/uL (140-400) Neutrophils (%) (Auto) 54 % (31-73) Lymphocytes (%) (Auto) 34 % (24-48) Monocytes (%) (Auto) 10 % (0-9) H Eosinophils (%) (Auto) 1 % (0-3) Basophils (%) (Auto) 1 % (0-3) Neutrophils # (Auto) 4.3 x10^3uL (1.8-7.7) Lymphocytes # (Auto) 2.8 x10^3/uL (1.0-4.8) Monocytes # (Auto) 0.8 x10^3/uL (0.0-1.1) Eosinophils # (Auto) 0.1 x10^3/uL (0.0-0.7) Basophils # (Auto) 0.1 x10^3/uL (0.0-0.2) EKG EKG [] Radiology/Procedures Radiology/Procedures PROCEDURE: TESTICULAR/SCROTUM TESTICULAR/SCROTUM History: Right testicular pain. Realtime ultrasonography of the scrotum was performed. Comparison: None. The bilateral testicles demonstrate homogeneous parenchyma without evidence of mass, calcification, or increased Doppler flow. 5 mm right epididymal head cyst. The epididymides are otherwise normal. The right testicle measures 4.4 x 3.5 x 2.4 cm. The left testicle measures 4.3 x 3.4 x 2.5 cm. Trace bilateral hydrocele. Left varicocele. Impression: 1. No evidence of testicular torsion. 2. Trace bilateral hydroceles. 3. Left varicocele. Electronically signed by: Roberto Mays MD (05/15/2019 8:16 AM) [id number] Course & Med Decision Making Course & Med Decision Making Pertinent Labs and Imaging studies reviewed. (See chart for details) Patient presents with history of right testicular pain which started this AM. Pain addressed. UA without acute process. Urine chlamydia/gonorrhea cultures pending. Testicular US noted bilateral hydroceles and left varicocele. Patient advised would need to follow with urology for further evaluation. [facility] report obtained. Patient with multiple controlled substances. Most recently patient was prescribed Percocet 5/325mg x 28 tabs which was filled on 05/11/19. Patient has been prescribed a total of 105 tabs of [place] 5/325mg, 5 tabs of Oxycodone, and then the Percocet 5/325mg x 28 tabs since the beginning of the year 2019. Patient was asked about recent pain medications and reported he was last prescribed pain meds 1 month ago. Patient asked again about recent pain meds and was not forthcoming. Reports he does have chronic back pain. Patient advised of concern for drug seeking behavior. Advised knowledge of recent pain medications filled 4 days ago. Patient advised would not be able to prescribe further pain medications. Advised might need to follow with pain specialist regarding his pain issues. Patient stable for discharge with outpatient follow-up with PCP/urology/pain management. Discussed findings and plan with patient, who acknowledges understanding and agreement. Danielon Disclaimer Danielon Disclaimer This electronic medical record was generated, in whole or in part, using a voice recognition dictation system. Departure Departure: Impression: Primary Impression: Testicular pain, right Additional Impression: Drug-seeking behavior Disposition: 01 HOME, SELF-CARE Condition: STABLE Referrals: PCP,OSIEL (PCP) Patient Instructions: Drug Abuse and Addiction-SportsMed, Testicular Problems and Self-Exam Additional Instructions: Please call your insurance and obtain list of local Urologists. Recommend follow-up in next 3-5 days. Use over the counter Ibuprofen 600mg (3 over the counter tabs) three times daily as needed for pain. May also use your recently prescribed pain medications. You may also benefit from following with a pain specialist for your chronic pain. Dr. Tio Denton Problem Qualifiers CHRISTINE NOLASCO DO May 15, 2019 08:59
== END 2019-05-15 09:40 | disposition home or self-care (01) ==
LOC: ER 06:45
DX: N50.811 Right testicular pain (principal); Z76.5 Malingerer [conscious simulation]; G43.909 Migraine, unspecified, not intractable, without status migrainosus; G89.29 Other chronic pain; F17.210 Nicotine dependence, cigarettes, uncomplicated; Z90.89 Acquired absence of other organs; Z88.8 Allergy status to other drugs, medicaments and biological substances
CPT/HCPCS: 36415; 76870; 80048; 81001; 83735; 85025; 87491; 87591; 96374; 96375; 99284; J1885; J3010

== ENCOUNTER 2019-05-27 04:25 | Emergency (ER) | payer OTHER ==
[~2019-05-27] VITALS: Ht 182.9 cm; Wt 95.0 kg
--- NOTE | 2019-05-27 04:56 | PHYS DOC ---
Past History Past Medical History: Anxiety, Depression, Migraines, Sciatica, Other Additional Past Medical Histor: Chronic back pain, lumbar myopathy, herniated L4 disc Past Surgical History: Appendectomy, Tonsillectomy Smoking: Cigarettes Alcohol Use: Occasionally Drug Use: Marijuana, Methamphetamine Adult General Chief Complaint Chief Complaint: ANXIETY/PANIC ATTACK HPI HPI 23-year-old male presents with report of increased agitation and anxiety after snorting methamphetamines this evening. Patient reports he is planning on checking himself into a drug rehabilitation center today and wanted to take a last "hit". Patient reports snorting the methamphetamines to his right nostril with subsequent nosebleed. Patient reports he started to become more anxious and was concerned that he might cause a "hole in his head" Review of Systems Review of Systems Constitutional: Denies fever or chills Eyes: Denies redness or eye pain HENT: Denies nasal congestion; reports epistaxis Respiratory: Denies cough or shortness of breath Cardiovascular: Reports chest pain and palpitations GI: Denies abdominal pain, nausea, or vomiting : Denies dysuria or hematuria Musculoskeletal: Denies back pain or joint pain Integument: Denies rash or skin lesions Neurologic: Denies headache, focal weakness or sensory changes Complete systems were reviewed and found to be within normal limits, except as documented in this note. Current Medications Current Medications Current Medications Medications (Trade) Dose Ordered Sig/Magalie Start Time Stop Time Status Last Admin Dose Admin Lorazepam (Ativan Inj) 1 mg 1X ONCE 05/27/19 05:00 05/27/19 05:01 Allergies Allergies Allergies Coded Allergies Type Severity Reaction Last Updated Verified metoclopramide Allergy Intermediate 01/09/19 Yes Physical Exam Physical Exam Constitutional: Well developed, well nourished, anxious, non-toxic appearance HENT: Normocephalic, atraumatic, oropharynx moist, no blood noted to right near, no active bleeding appreciated, no septal hematoma Eyes: Conjunctiva normal, no discharge Neck: Normal range of motion, no tenderness, supple Cardiovascular: Heart rate tachycardic, regular rhythm Lungs & Thorax: Bilateral breath sounds clear to auscultation, no wheezing Abdomen: Soft, no tenderness Skin: Warm, dry, no erythema, no rash Extremities: No tenderness, ROM intact, no edema, no calf tenderness Neurologic: Alert and oriented X 3, no focal deficits noted Psychologic: Affect anxious, judgment normal EKG EKG @0448 Sinus tachycardia at 113bpm, NO ST elevation, QRS 90ms, QT/QTc 308/428ms, Q wave in III Radiology/Procedures Radiology/Procedures [] Course & Med Decision Making Course & Med Decision Making Patient presents with history of present illness and physical exam consistent for panic attack after snorting methamphetamines. Patient had experienced a nosebleed which is now resolved. Patient does appear anxious and tachycardic. EKG without signs of acute STEMI for significant arrhythmia. Ativan provided with interval improvement of symptoms. Patient to check himself into outpatient rehabilitation for drug addiction. Patient advised to continue plan. Patient stable for discharge with outpatient follow-up with PCP/drug rehabilitation. Discussed findings and plan with patient and friend, who acknowledge understanding and agreement. Dragon Disclaimer Dragon Disclaimer This electronic medical record was generated, in whole or in part, using a voice recognition dictation system. Departure Departure: Impression: Primary Impression: Panic attack Additional Impression: Methamphetamine abuse Disposition: 01 HOME, SELF-CARE Condition: STABLE Referrals: PCP,NO (PCP) Patient Instructions: Anxiety and Panic Attacks, Gihc-le-Cyxy, Methamphetamine Abuse, Complications Additional Instructions: Please continue with plan to check yourself into a drug rehabilitation center today to seek help with your addiction. Problem Qualifiers CHRISTINE NOLASCO DO May 27, 2019 04:56
[2019-05-27 05:00] VITALS: BP 145/58
--- NOTE | 2019-05-27 06:00 | EKG ---
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
== END 2019-05-27 05:14 | disposition home or self-care (01) ==
LOC: ER 04:25
DX: F41.0 Panic disorder [episodic paroxysmal anxiety] (principal); F15.10 Other stimulant abuse, uncomplicated; F12.10 Cannabis abuse, uncomplicated; F17.210 Nicotine dependence, cigarettes, uncomplicated; F32.9 Major depressive disorder, single episode, unspecified; G43.909 Migraine, unspecified, not intractable, without status migrainosus; G89.29 Other chronic pain; Z88.8 Allergy status to other drugs, medicaments and biological substances
CPT/HCPCS: 93005; 96372; 99283; J2060

== ENCOUNTER 2019-06-13 20:44 | Emergency (ER) | payer OTHER ==
[~2019-06-13] VITALS: Ht 182.9 cm; Wt 95.0 kg
--- NOTE | 2019-06-13 20:50 | PHYS DOC ---
Past History Past Medical History: Anxiety, Depression, Migraines, Sciatica, Other Additional Past Medical Histor: Chronic back pain, lumbar myopathy, herniated L4 disc Past Surgical History: Appendectomy, Tonsillectomy Smoking: Cigarettes Alcohol Use: Occasionally Drug Use: Marijuana, Methamphetamine Adult General Chief Complaint Chief Complaint: ".. I did about 20 dollars of meth... and been jacked up ever since... jerking,, my feet feel swollen.. can't get rested.. ".." snoted it.. and been fuck up ever since.. just jerky.. twitching.. " HPI HPI Patient is a 23 year old male who presents with above hx and complaints of swollen feet, left knee abrasion, agitation, insomnia, and having extrapyramidal l movements. Patient does admit to snorting approximately $20 of methamphetamine prior the onset of symptoms. Patient states he did trip and fall resulting in abrasion left knee. Patient had previous ED evaluations and hx of methamphetamine abuse. Patient states his tetanus is up-to-date as of a year ago. Patient denies any recent travel outside at [facility]. Patient did not get flu vaccination this season. No specific ill contacts. No history immunosuppression. Pt. does smoke and at time abuse of alcohol and methamphetamine. Pt. does also smoke marijuana. Review of Systems Review of Systems Constitutional: Denies fever or chills [] Eyes: Denies change in visual acuity, redness, or eye pain [] HENT: Denies nasal congestion or sore throat [] Respiratory: Denies cough or shortness of breath [] Cardiovascular: No additional information not addressed in HPI [] GI: Denies abdominal pain, nausea, vomiting, bloody stools or diarrhea [] : Denies dysuria or hematuria [] Musculoskeletal: Denies back pain or joint pain []. The patient complaints of abrasion of left knee Integument: Denies rash or skin lesions [] Neurologic: Denies headache, focal weakness or sensory changes []. The patient complains of jerky extrapyramidal movements, agitation and insomnia Endocrine: Denies polyuria or polydipsia [] All other systems were reviewed and found to be within normal limits, except as documented in this note. Family History Family History Non-Contributory Current Medications Current Medications See nursing for home meds Allergies Allergies Allergies Coded Allergies Type Severity Reaction Last Updated Verified metoclopramide Allergy Intermediate 01/09/19 Yes Physical Exam Physical Exam Constitutional: Moderately acute distress, appears under influence of methamphetamine . HENT: Normocephalic, atraumatic, bilateral external ears normal, oropharynx moist, no oral exudates, nose normal. Poor dentition Eyes: PERRLA, EOMI, conjunctiva normal, no discharge. [] Neck: Normal range of motion, no tenderness, supple, no stridor. [] Cardiovascular:Heart rate regular rhythm, no murmur [] Lungs & Thorax: Bilateral breath sounds equal apex with scattered wheezes on auscultation [] Abdomen: Bowel sounds normal, soft, no tenderness, no masses, no pulsatile masses. [] Skin: Warm, dry, no erythema, no rash. [] Abrasion to left knee. Back: No tenderness, no CVA tenderness. [] Extremities: Left knee tenderness, no cyanosis, no clubbing, ROM intact, no edema. [] Left knee contusion and abrasion. Pt. ambulatory with out problem. Neurologic: Alert and oriented X 3, moves ext. on request, has distal sensory, no gross focal deficits noted. []DTRs +2 patella and brachial.. Does have occasional jerking extrapyramidal movements all 4 limbs. Psychologic: Affect anxious and agitated,, judgement poor insight to his drug abuse complications, mood normal. [] EKG EKG [] Radiology/Procedures Radiology/Procedures [] Course & Med Decision Making Course & Med Decision Making Pertinent Labs and Imaging studies reviewed. (See chart for details) Patient avoid methamphetamine use. Patient follow-up primary care. Pt. abrasion washed and cleaned with soap and water. Application of an ointment to abrasion. Patient approximately 8 x 16 cm on left knee. Consider drug rehabilitation program. Patient encouraged to stop smoking. Patient to take Benadryl 50 mg 4 times a day for extrapyramidal movements. Apply Polysporin to his left knee abrasion 4 times a day. Impression: 1. Methamphetamine Use - Hx. 2. Extrapyramidal movements 3. Left knee abrasion and contusion 4. Polysubstance Abuse- Drug screen tonight + for Meth, Benzo's and Narcotics. [] Dragon Disclaimer Dragon Disclaimer This electronic medical record was generated, in whole or in part, using a voice recognition dictation system. Departure Departure: Disposition: 01 HOME/RESIDENCE PRIOR TO ADM Condition: STABLE Referrals: PCP,OSIEL (PCP) Basim Disclaimer This chart was dictated in whole or in part using Voice Recognition software in a busy, high-work load, and often noisy Emergency Department environment. It may contain unintended and wholly unrecognized errors or omissions. GOPI HENAO MD Jun 13, 2019 20:50
[2019-06-13 21:03] VITALS: BP 145/90
[2019-06-13] MEDS ORDERED: BACITRACIN ZINC TOPICAL OINT PACKET. TP ONE (21:15)
[2019-06-13] MEDS ORDERED: diphenhydrAMINE HCL 25 MG CAPSULE PO ONE (21:15)
[2019-06-13 21:44] LABS: BARBITURATES NEG (NEG); BENZODIAZEPINES POS (NEG); CANNABINOIDS NEG (NEG); COCAINE NEG (NEG); METHADONE NEG (NEG); OPIATES POS (NEG); PHENCYCLIDINE NEG (NEG)
[2019-06-13 21:59] LABS: AMPHETAMINE/METHAMPHETAMINE POS (NEG)
== END 2019-06-13 21:25 | disposition home or self-care (01) ==
LOC: ER 20:44
DX: S80.02XA Contusion of left knee, initial encounter (principal); F15.10 Other stimulant abuse, uncomplicated; G25.9 Extrapyramidal and movement disorder, unspecified; F19.10 Other psychoactive substance abuse, uncomplicated; F17.210 Nicotine dependence, cigarettes, uncomplicated; G89.29 Other chronic pain; M54.9 Dorsalgia, unspecified; F12.10 Cannabis abuse, uncomplicated; Z90.49 Acquired absence of other specified parts of digestive tract; Z90.89 Acquired absence of other organs; Z88.8 Allergy status to other drugs, medicaments and biological substances; W01.0XXA Fall on same level from slipping, tripping and stumbling without subsequent striking against object, initial encounter; Y93.89 Activity, other specified; Y92.89 Other specified places as the place of occurrence of the external cause; Y99.8 Other external cause status
CPT/HCPCS: 36415; 80307; 99283; Q0163

== ENCOUNTER 2019-06-22 21:20 | Emergency (ER) | payer OTHER ==
[~2019-06-22] VITALS: Ht 182.9 cm; Wt 91.0 kg
--- NOTE | 2019-06-22 21:55 | PHYS DOC ---
Past History Past Medical History: Anxiety, Depression, Migraines, Sciatica, Other Additional Past Medical Histor: Chronic back pain, lumbar myopathy, herniated L4 disc Past Surgical History: Appendectomy, Tonsillectomy Smoking: Cigarettes Alcohol Use: Occasionally Drug Use: Marijuana, Methamphetamine General Adult EDM: Chief Complaint: OVERDOSE HPI: HPI: Patient is an unfortunate 23-year-old male was substance abuse issues. He states he did meth 3 days ago and is trying to come off of it. Today he took 210 mg Percocet and 2 Xanax. He states that this was not in an attempt to harm himself. Patient endorses forward thinking stating that he thinks if he can just get up and get some exercise tomorrow that he'll feel a lot better he denies suicidal or homicidal ideation. He adamantly denies taking anything more than what was described above[] Review of Systems: Review of Systems: Constitutional: Denies fever or chills Eyes: Denies change in visual acuity HENT: Denies nasal congestion or sore throat Respiratory: Denies cough or shortness of breath Cardiovascular: Denies chest pain or edema GI: Denies abdominal pain, nausea, vomiting, bloody stools or diarrhea : Denies dysuria Musculoskeletal: Denies back pain or joint pain Integument: Denies rash Neurologic: Denies headache, focal weakness or sensory changes Endocrine: Denies polyuria or polydipsia Lymphatic: Denies swollen glands Psychiatric: Anxiety Heart Score: Risk Factors: Risk Factors: DM, Current or recent (<one month) smoker, HTN, HLP, family history of CAD, obesity. Risk Scores: Score 0 - 3: 2.5% MACE over next 6 weeks - Discharge Home Score 4 - 6: 20.3% MACE over next 6 weeks - Admit for Clinical Observation Score 7 - 10: 72.7% MACE over next 6 weeks - Early Invasive Strategies Allergies: Allergies: Allergies Coded Allergies Type Severity Reaction Last Updated Verified metoclopramide Allergy Intermediate 01/09/19 Yes Physical Exam: PE: Constitutional: Well developed, well nourished, no acute distress, non-toxic appearance. [] HENT: Normocephalic, atraumatic, bilateral external ears normal, oropharynx moist, no oral exudates, nose normal. [] Eyes: PERRLA, EOMI, conjunctiva normal, no discharge. [] Neck: Normal range of motion, no tenderness, supple, no stridor. [] Cardiovascular:Heart rate regular rhythm, no murmur [] Lungs & Thorax: Bilateral breath sounds clear to auscultation [] Abdomen: Bowel sounds normal, soft, no tenderness, no masses, no pulsatile mass es. [] Skin: He has some very superficial abrasions consistent with self-mutilation on the right arm. [] Back: No tenderness, no CVA tenderness. [] Extremities: No tenderness, no cyanosis, no clubbing, ROM intact, no edema. [] Neurologic: Alert and oriented X 3, normal motor function, normal sensory function, no focal deficits noted. [] Psychologic: Anxious but not suicidal or homicidal[] EKG: EKG: [] Radiology/Procedures: Radiology/Procedures: [] Course & Med Decision Making: Course & Med Decision Making Pertinent Labs and Imaging studies reviewed. (See chart for details) [] Dragon Disclaimer: Dragon Disclaimer: This electronic medical record was generated, in whole or in part, using a voice recognition dictation system. Departure Departure: Impression: Primary Impression: Polysubstance abuse Disposition: HOME, SELF-CARE Condition: STABLE Referrals: PCP,NO (PCP) Patient Instructions: Substance Abuse-Brief Additional Instructions: Return to the emergency department with any new or concerning symptoms SHAY BARKSDALE DO Jun 22, 2019 21:55
[2019-06-22 22:05] VITALS: BP 135/75
== END 2019-06-23 03:05 | disposition home or self-care (01) ==
LOC: ER 21:20
DX: F19.10 Other psychoactive substance abuse, uncomplicated (principal); F15.10 Other stimulant abuse, uncomplicated; F12.10 Cannabis abuse, uncomplicated; F41.9 Anxiety disorder, unspecified; F32.9 Major depressive disorder, single episode, unspecified; G43.909 Migraine, unspecified, not intractable, without status migrainosus; G89.29 Other chronic pain; F17.210 Nicotine dependence, cigarettes, uncomplicated; Z88.8 Allergy status to other drugs, medicaments and biological substances
CPT/HCPCS: 99283

== ENCOUNTER 2019-07-11 03:06 | Emergency (ER) | payer OTHER ==
[~2019-07-11] VITALS: Ht 182.9 cm; Wt 86.5 kg
[2019-07-11 03:23] VITALS: BP 114/95
== END 2019-07-11 03:45 | disposition home or self-care (01) ==
LOC: ER 03:06
DX: R22.31 Localized swelling, mass and lump, right upper limb (principal); R22.41 Localized swelling, mass and lump, right lower limb; F15.10 Other stimulant abuse, uncomplicated; Z53.21 Procedure and treatment not carried out due to patient leaving prior to being seen by health care provider

== ENCOUNTER 2019-08-17 13:38 | Emergency (ER) | payer OTHER ==
[~2019-08-17] VITALS: Ht 182.9 cm; Wt 84.8 kg
[2019-08-17] MEDS ORDERED: ONDANSETRON PF 4 MG/2 ML VIAL. ONE (13:49)
[2019-08-17] MEDS ORDERED: IV NORMAL SALINE 1,000ML 1,000 ML IV ONE (14:00)
[2019-08-17] MEDS ORDERED: ONDANSETRON PF 4 MG/2 ML VIAL. IV ONE (14:00)
--- NOTE | 2019-08-17 14:16 | PHYS DOC ---
Past History Past Medical History: Anxiety, Depression, Migraines, Sciatica, Other Additional Past Medical Histor: Chronic back pain, lumbar myopathy, herniated L4 disc, DRUG ABUSE Past Surgical History: Appendectomy, Tonsillectomy Smoking: Cigarettes Alcohol Use: None Drug Use: Marijuana, Methamphetamine Social History Narrative: every day for 3 months General Adult EDM: Chief Complaint: MUSCLE SPASM/CRAMP HPI: HPI: ED course: Evaluation reveals a 23-year-old male who is unfortunately a chronic methamphetamine user. He states he uses it to prevent depression. He says he has been using it daily for months. Today, he decided to smoke it twice and now he cannot get comfortable his muscles are wilber he feels extremely anxious. He denies any suicidal or homicidal ideation. He does state that he has been up several days. He is not eating or drinking well. [] Review of Systems: Review of Systems: Constitutional: Denies fever or chills Eyes: Denies change in visual acuity HENT: Denies nasal congestion or sore throat Respiratory: Denies cough or shortness of breath Cardiovascular: Denies chest pain or edema GI: Denies abdominal pain, nausea, vomiting, bloody stools or diarrhea : Denies dysuria Musculoskeletal: Denies back pain or joint pain Integument: Denies rash Neurologic: Denies headache, focal weakness or sensory changes Endocrine: Denies polyuria or polydipsia Lymphatic: Denies swollen glands Psychiatric: Per HPI Heart Score: Risk Factors: Risk Factors: DM, Current or recent (<one month) smoker, HTN, HLP, family history of CAD, obesity. Risk Scores: Score 0 - 3: 2.5% MACE over next 6 weeks - Discharge Home Score 4 - 6: 20.3% MACE over next 6 weeks - Admit for Clinical Observation Score 7 - 10: 72.7% MACE over next 6 weeks - Early Invasive Strategies Current Medications: Current Meds: Current Medications Medications (Trade) Dose Ordered Sig/Magalie Start Time Stop Time Status Last Admin Dose Admin Lorazepam (Ativan Inj) 2 mg 1X ONCE 08/17/19 14:00 08/17/19 14:01 DC 08/17/19 14:05 2 MG Ondansetron HCl (Zofran) 4 mg 1X ONCE 08/17/19 14:00 08/17/19 14:01 DC 08/17/19 14:03 4 MG Sodium Chloride 1,000 ml @ 1,000 mls/hr 1X ONCE 08/17/19 14:00 08/17/19 14:59 08/17/19 14:07 1,000 MLS/HR Allergies: Allergies: Allergies Coded Allergies Type Severity Reaction Last Updated Verified metoclopramide Allergy Intermediate 01/09/19 Yes Physical Exam: PE: Constitutional: Well developed, well nourished, no acute distress, non-toxic appearance. [] HENT: Normocephalic, atraumatic, bilateral external ears normal, oropharynx moist, no oral exudates, nose normal. [] Eyes: PERRLA, EOMI, conjunctiva normal, no discharge. [] Neck: Normal range of motion, no tenderness, supple, no stridor. [] Cardiovascular:Heart rate regular rhythm, no murmur [] Lungs & Thorax: Bilateral breath sounds clear to auscultation [] Abdomen: Bowel sounds normal, soft, no tenderness, no masses, no pulsatile masses. [] Skin: Warm, dry, no erythema, no rash. [] Back: No tenderness, no CVA tenderness. [] Extremities: No tenderness, no cyanosis, no clubbing, ROM intact, no edema. [] Neurologic: Alert and oriented X 3, normal motor function, normal sensory f unction, no focal deficits noted. [] Psychologic: Affect normal, judgement normal, mood normal. [] Current Patient Data: Vital Signs: Vital Signs Date Time Temp Pulse Resp B/P (MAP) Pulse Ox O2 Delivery O2 Flow Rate FiO2 08/17/19 13:38 97.7 140 28 124/108 (113) 98 Room Air EKG: EKG: [] Radiology/Procedures: Radiology/Procedures: [] Course & Med Decision Making: Course & Med Decision Making Pertinent Labs and Imaging studies reviewed. (See chart for details) ED course: Evaluation reveals a 23-year-old male with methamphetamine intoxication/accidental overdose. He was given IV fluids and Ativan during his stay in the department which did help calm him down. He was given instructions not to use methamphetamines and to seek help for substance abuse. [] Dragon Disclaimer: Dragon Disclaimer: This electronic medical record was generated, in whole or in part, using a voice recognition dictation system. Departure Departure: Impression: Primary Impression: Methamphetamine intoxication Additional Impression: Methamphetamine abuse Disposition: HOME/RESIDENCE PRIOR TO ADM Condition: STABLE Referrals: TERRANCE CHAIREZ MD (PCP) Patient Instructions: Amphetamine Abuse Additional Instructions: Return to the emergency department any new or concerning symptoms SHAY BARKSDALE DO Aug 17, 2019 14:16
[2019-08-17 14:22] LABS: BASO % 0 % (0-3); EOS % 0 % (0-3); HEMATOCRIT 45.5 % (39.0-53.0); HEMOGLOBIN 15.4 g/dL (13.0-17.5); LYMPH # 2.1 x10^3/uL (1.0-4.8); LYMPH % 24 % (24-48); MEAN CORPUSCULAR HEMOGLOBIN 31 pg (25-35); MEAN CORPUSCULAR HGB CONC 34 g/dL (31-37); MEAN CORPUSCULAR VOLUME 91 fL (79-100); MONO # 0.8 x10^3/uL (0.0-1.1); MONO % 9 % (0-9); NEUT # 5.8 x10^3uL (1.8-7.7); NEUT % 66 % (31-73); PLATELET COUNT 247 x10^3/uL (140-400); RED BLOOD COUNT 5.01 x10^6/uL (4.30-5.70); RED CELL DISTRIBUTION WIDTH 12.7 % (11.5-14.5); WHITE BLOOD COUNT 8.7 x10^3/uL (4.0-11.0)
[2019-08-17 14:35] LABS: CALCIUM 9.5 mg/dL (8.5-10.1); CREATININE 0.9 mg/dL (0.7-1.3); GFR 106.5; POTASSIUM 3.9 mmol/L (3.5-5.1)
[2019-08-17 14:37] VITALS: BP 128/97
[2019-08-17 14:41] LABS: ALBUMIN 4.4 g/dL (3.4-5.0); ALBUMIN/GLOBULIN RATIO 1.4 (1.0-1.7); TOTAL BILIRUBIN 0.7 mg/dL (0.2-1.0); TOTAL PROTEIN 7.6 g/dL (6.4-8.2)
--- NOTE | 2019-08-17 16:35 | EKG ---
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
== END 2019-08-17 14:57 | disposition home or self-care (01) ==
LOC: ER 13:38
DX: F15.229 Other stimulant dependence with intoxication, unspecified (principal); F41.9 Anxiety disorder, unspecified; F32.9 Major depressive disorder, single episode, unspecified; G43.909 Migraine, unspecified, not intractable, without status migrainosus; G89.29 Other chronic pain; F17.210 Nicotine dependence, cigarettes, uncomplicated; Z90.49 Acquired absence of other specified parts of digestive tract; F12.10 Cannabis abuse, uncomplicated; Z88.8 Allergy status to other drugs, medicaments and biological substances
CPT/HCPCS: 36415; 80053; 85025; 93005; 96374; 96375; 99284; J2060; J2405; J7030

== ENCOUNTER 2019-08-20 17:26 | Emergency (ER) | payer OTHER ==
[~2019-08-20] VITALS: Ht 182.9 cm; Wt 84.8 kg
[2019-08-20 17:31] VITALS: BP 128/97
--- NOTE | 2019-08-20 17:31 | PHYS DOC ---
Past History Past Medical History: Anxiety, Depression, Migraines, Sciatica, Other Additional Past Medical Histor: Chronic back pain, lumbar myopathy, herniated L4 disc, DRUG ABUSE Past Surgical History: Appendectomy, Tonsillectomy Smoking: Cigarettes Alcohol Use: None Drug Use: Marijuana, Methamphetamine General Adult HPI: HPI: ".. I been back on the meth... I ve been doing about 1/2 gram a day... I smoked 4 lines last night.. and since then I have not felt right in the chest... I really going to go cold turkey.. I going to give it up..I have too..." Patient is a 23 year old male who presents with above hx and complaints chest discomfort after smoking for lines of methamphetamine. Patient has had multiple ED evaluations for polysubstance abuse and pain complaints. Patient normally follows with Dr. Chairez. Patient has past medical history of anxiety, depression, sciatica, myopathy, chronic low back pain, polysubstance abuse, tobacco use. Pt. while waiting for IV and labs draws, he decided to leave. Pt. did not notify nursing he decided not to be evaluated. Review of old records, this has been consistent with his behavior in the past. Review of Systems: Review of Systems: Constitutional: Denies fever or chills Eyes: Denies change in visual acuity HENT: Denies nasal congestion or sore throat Respiratory: Denies cough or shortness of breath Cardiovascular: Complaints of tachycardia GI: Denies abdominal pain, nausea, vomiting, bloody stools or diarrhea : Denies dysuria Musculoskeletal: Complaints of chronic back pain. Integument: Denies rash Neurologic: Denies headache, focal weakness or sensory changes Endocrine: Denies polyuria or polydipsia Lymphatic: Denies swollen glands Psychiatric: complaints of anxiety Heart Score: Risk Factors: Risk Factors: DM, Current or recent (<one month) smoker, HTN, HLP, family history of CAD, obesity. Risk Scores: Score 0 - 3: 2.5% MACE over next 6 weeks - Discharge Home Score 4 - 6: 20.3% MACE over next 6 weeks - Admit for Clinical Observation Score 7 - 10: 72.7% MACE over next 6 weeks - Early Invasive Strategies Family History: Family History: Noncontributory Current Medications: Current Meds: See nursing for home meds Allergies: Allergies: Allergies Coded Allergies Type Severity Reaction Last Updated Verified metoclopramide Allergy Intermediate 01/09/19 Yes Physical Exam: PE: Constitutional: Well developed, well nourished, no acute distress, non-toxic appearance. [] HENT: Normocephalic, atraumatic, bilateral external ears normal, oropharynx moist, no oral exudates, nose normal. [] Eyes: PERRLA, EOMI, conjunctiva normal, no discharge. [] Neck: Normal range of motion, no tenderness, supple, no stridor. [] Cardiovascular: Tachycardia heart rate regular rhythm, no murmur [] Lungs & Thorax: Bilateral breath sounds equal apex with scattered wheezes auscultation [] Abdomen: Bowel sounds normal, soft, no tenderness, no masses, no pulsatile m asses. [] Skin: Warm, dry, no erythema, no rash. [] Back: No tenderness, no CVA tenderness. [] Extremities: No tenderness, no cyanosis, no clubbing, ROM intact, no edema. [] Neurologic: Alert and oriented X 3, normal motor function, normal sensory function, no focal deficits noted. [] Psychologic: Affect anxious judgement normal, mood normal. [] EKG: EKG: Patient did not remain long enough to get an EKG [] Radiology/Procedures: Radiology/Procedures: Patient not remaining long left to get a chest x-ray [] Course & Med Decision Making: Course & Med Decision Making Pertinent Labs and Imaging studies reviewed. (See chart for details) Patient encouraged to stop smoking and consider drug rehab program. Patient left before lab draws or EKG. Impression: 1. Polysubstance Abuse 2. Chest Discomfort 3. Hx. Anxiety 4. Hx. of Depression [] Dragon Disclaimer: Dragon Disclaimer: This electronic medical record was generated, in whole or in part, using a voice recognition dictation system. Departure Departure: Disposition: 01 HOME/RESIDENCE PRIOR TO ADM Condition: STABLE Referrals: TERRANCE CHAIREZ MD (PCP) Justification of Admission: Justification of Admission: Justification of Admission Dx: N/A Dragon Disclaimer This chart was dictated in whole or in part using Voice Recognition software in a busy, high-work load, and often noisy Emergency Department environment. It may contain unintended and wholly unrecognized errors or omissions. Dragon Disclaimer This chart was dictated in whole or in part using Voice Recognition software in a busy, high-work load, and often noisy Emergency Department environment. It may contain unintended and wholly unrecognized errors or omissions. GOPI HENAO MD Aug 20, 2019 17:31
[2019-08-20] MEDS ORDERED: IV RINGERS SOLUTION,LACTATED 1,000 ML IV SCH (18:07)
== END 2019-08-20 17:50 | disposition left against medical advice (07) ==
LOC: ER 17:26
DX: R07.89 Other chest pain (principal); F19.10 Other psychoactive substance abuse, uncomplicated; F41.9 Anxiety disorder, unspecified; F32.9 Major depressive disorder, single episode, unspecified; G89.29 Other chronic pain; M54.5 Low back pain; G43.909 Migraine, unspecified, not intractable, without status migrainosus; F17.210 Nicotine dependence, cigarettes, uncomplicated; F12.10 Cannabis abuse, uncomplicated; F15.10 Other stimulant abuse, uncomplicated; Z88.8 Allergy status to other drugs, medicaments and biological substances
CPT/HCPCS: 99281

== ENCOUNTER 2019-08-26 03:46 | Emergency (ER) | payer OTHER ==
[~2019-08-26] VITALS: Ht 182.9 cm; Wt 84.8 kg
[2019-08-26 03:46] VITALS: BP 166/80
--- NOTE | 2019-08-26 03:57 | PHYS DOC ---
Past History Past Medical History: Anxiety, Depression, Migraines, Sciatica, Other Additional Past Medical Histor: Chronic back pain, lumbar myopathy, herniated L4 disc, DRUG ABUSE Past Surgical History: Appendectomy, Tonsillectomy Smoking: Cigarettes Alcohol Use: None Drug Use: Marijuana, Methamphetamine General Adult EDM: Chief Complaint: chest pain, recent meth use, anxiety HPI: HPI: Patient is a 23 year old male who presents for evaluation of anxiety, chest pain and chest pressure. Patient has a longstanding history of polysubstance drug abuse and chronic pain. Patient states that he smoked methamphetamine about 1 hour ago. Patient has a rapid heart rate on arrival. Patient is very anxious and is requesting medication for anxiety and to "help bring me down from the meth". Patient states he has difficulty sleeping tonight. Patient is well- known to this hospital and has been seen for similar complaints many times in the past. Patient states he walked up to the hospital after using meth tonight. Pt denied suicidal ideation. Pt states he has access to antidepressant medication at home but has not been taking it. Review of Systems: Review of Systems: Constitutional: Denies fever or chills Eyes: Denies change in visual acuity HENT: Denies nasal congestion or sore throat Respiratory: Denies cough has shortness of breath Cardiovascular: has chest pain no edema GI: Denies abdominal pain, nausea, vomiting, bloody stools or diarrhea : Denies dysuria Musculoskeletal: Denies back pain or joint pain Integument: Denies rash Neurologic: Denies headache, focal weakness or sensory changes Endocrine: Denies polyuria or polydipsia Lymphatic: Denies swollen glands Psychiatric: complains of depression and anxiety Heart Score: HEART Score for Chest Pain: HEART Score for Chest Pain Response (Comments) Value History Moderately Suspicious 1 ECG Nonspecific Repolarizatio 1 Age < 45 0 Risk Factors No Risk Factors 0 Troponin < Normal Limit 0 Total 2 Risk Factors: Risk Factors: DM, Current or recent (<one month) smoker, HTN, HLP, family history of CAD, obesity. Risk Scores: Score 0 - 3: 2.5% MACE over next 6 weeks - Discharge Home Score 4 - 6: 20.3% MACE over next 6 weeks - Admit for Clinical Observation Score 7 - 10: 72.7% MACE over next 6 weeks - Early Invasive Strategies Allergies: Allergies: Allergies Coded Allergies Type Severity Reaction Last Updated Verified metoclopramide Allergy Intermediate 10/26/19 Yes Physical Exam: PE: Constitutional: Well developed, well nourished, mild to moderate distress, non- toxic appearance. [] HENT: Normocephalic, atraumatic, bilateral external ears normal, oropharynx moist, no oral exudates, nose normal. [] Eyes: PERRL, EOMI, conjunctiva normal, no discharge. [] Neck: Normal range of motion, no tenderness, supple, no stridor. [] Cardiovascular:tachycardia regular rhythm, no murmur [] Lungs & Thorax: Bilateral breath sounds clear to auscultation [] Abdomen: Bowel sounds normal, soft, no tenderness, no masses, no pulsatile masses. [] Skin: Warm, dry, no erythema, no rash. [] Back: No tenderness, no CVA tenderness. [] Extremities: No tenderness, no cyanosis, ROM intact, no edema. [] Neurologic: Alert and oriented, normal motor function, normal sensory function, no focal deficits noted. [] Psychologic: Highly anxious, abnormal affect, exhibits paranoia as well [] Current Patient Data: Labs: Laboratory Tests Test 08/26/19 04:10 White Blood Count 9.1 x10^3/uL Red Blood Count 4.93 x10^6/uL Hemoglobin 15.3 g/dL Hematocrit 44.7 % Mean Corpuscular Volume 91 fL Mean Corpuscular Hemoglobin 31 pg Mean Corpuscular Hemoglobin Concent 34 g/dL Red Cell Distribution Width 12.2 % Platelet Count 273 x10^3/uL Neutrophils (%) (Auto) 68 % Lymphocytes (%) (Auto) 22 % Monocytes (%) (Auto) 10 % Eosinophils (%) (Auto) 0 % Basophils (%) (Auto) 1 % Neutrophils # (Auto) 6.2 x10^3uL Lymphocytes # (Auto) 2.0 x10^3/uL Monocytes # (Auto) 0.9 x10^3/uL Eosinophils # (Auto) 0.0 x10^3/uL Basophils # (Auto) 0.1 x10^3/uL Sodium Level 142 mmol/L Potassium Level 4.5 mmol/L Chloride Level 102 mmol/L Carbon Dioxide Level 31 mmol/L Anion Gap 9 Blood Urea Nitrogen 18 mg/dL Creatinine 1.2 mg/dL Estimated GFR (Cockcroft-Gault) 76.4 BUN/Creatinine Ratio 15 Glucose Level 93 mg/dL Calcium Level 9.3 mg/dL Total Bilirubin 0.2 mg/dL Aspartate Amino Transf (AST/SGOT) 15 U/L Alanine Aminotransferase (ALT/SGPT) 29 U/L Alkaline Phosphatase 80 U/L Troponin I Quantitative < 0.017 ng/mL Total Protein 7.3 g/dL Albumin 4.2 g/dL Albumin/Globulin Ratio 1.4 Current Medications Medications (Trade) Dose Ordered Sig/Magalie Route PRN Reason Start Time Stop Time Status Last Admin Dose Admin Sodium Chloride 1,000 ml @ 1,000 mls/hr 1X ONCE IV 08/26/19 04:15 08/26/19 05:14 08/26/19 04:15 EKG: EKG: EKG read at 3:55 AM showed a sinus tachy rhythm rate 101, nonspecific ST segment changes, not STEMI [] Radiology/Procedures: Radiology/Procedures: [place] [address] IMAGING REPORT Signed PATIENT: RONALD MARLOW ACCOUNT: [id number] : 1995 LOCATION: ER AGE: 23 SEX: M EXAM STATUS: REG ER ORD. PHYSICIAN: RABIA YUAN DO REASON: chest pain, short of air PROCEDURE: CHEST AP ONLY INDICATION: Reason: chest pain, short of air / Spl. Instructions: / History: COMPARISON: December 2018 FINDINGS: Single view of chest obtained. Cardiac silhouette is similar to prior. No new region of airspace consolidation or pulmonary edema. IMPRESSION: * No focal airspace consolidation or edema. Electronically signed by: Stacy Adams MD (08/26/2019 4:35 AM) [id number] DICTATED AND SIGNED BY: STACY ADAMS MD DATE: 08/26/195 CC: TERRANCE CHAIREZ MD; RABIA YUAN DO ~ [] Course & Med Decision Making: Course & Med Decision Making Pertinent Labs and Imaging studies reviewed. (See chart for details) [] Dragon Disclaimer: Dragon Disclaimer: This electronic medical record was generated, in whole or in part, using a voice recognition dictation system. 0453 Stable, cardiac workup was stable. Pt was advised that he needs to seek medical help to stop using methamphetamines. Pt was seen earlier this month for similar complaints in this ED. CXR and labs are stable, pt ready for discharge. Liter IVF NS given. I did feel comfortable using controlled substances for this patient considering his extensive drug abuse. Departure Departure: Impression: Primary Impression: Acute chest pain Additional Impressions: Methamphetamine use Anxiety Disposition: HOME/RESIDENCE PRIOR TO ADM Condition: STABLE Referrals: TERRANCE CHAIREZ MD (PCP) Patient Instructions: Anxiety and Panic Attacks, Chest Pain (Nonspecific), [id number], Methamphetamine Abuse, Complications Additional Instructions: Drink plenty fluids, rest, restart your antidepressant medication as directed. You need to seek medical help to stop using methamphetamine. Resources were given to you Justification of Admission: Justification of Admission: Justification of Admission Dx: N/A RABIA YUAN DO Aug 26, 2019 03:57
[2019-08-26] MEDS ORDERED: IV NORMAL SALINE 1,000ML 1,000 ML IV ONE (04:15)
[2019-08-26 04:31] LABS: BASO # 0.1 x10^3/uL (0.0-0.2); BASO % 1 % (0-3); EOS % 0 % (0-3); HEMATOCRIT 44.7 % (39.0-53.0); HEMOGLOBIN 15.3 g/dL (13.0-17.5); LYMPH % 22 % (24-48); MEAN CORPUSCULAR HEMOGLOBIN 31 pg (25-35); MEAN CORPUSCULAR HGB CONC 34 g/dL (31-37); MEAN CORPUSCULAR VOLUME 91 fL (79-100); MONO # 0.9 x10^3/uL (0.0-1.1); MONO % 10 % (0-9); NEUT # 6.2 x10^3uL (1.8-7.7); NEUT % 68 % (31-73); PLATELET COUNT 273 x10^3/uL (140-400); RED BLOOD COUNT 4.93 x10^6/uL (4.30-5.70); RED CELL DISTRIBUTION WIDTH 12.2 % (11.5-14.5); WHITE BLOOD COUNT 9.1 x10^3/uL (4.0-11.0)
--- NOTE | 2019-08-26 04:38 | RAD ---
INDICATION: Reason: chest pain, short of air / Spl. Instructions: / History: COMPARISON: December 2018 FINDINGS: Single view of chest obtained. Cardiac silhouette is similar to prior. No new region of airspace consolidation or pulmonary edema. IMPRESSION: * No focal airspace consolidation or edema. Electronically signed by: Pedro Barron MD (08/26/2019 4:35 AM) [id number]
[2019-08-26 04:42] LABS: CALCIUM 9.3 mg/dL (8.5-10.1); CREATININE 1.2 mg/dL (0.7-1.3); GFR 76.4; POTASSIUM 4.5 mmol/L (3.5-5.1)
[2019-08-26 04:46] LABS: ALBUMIN 4.2 g/dL (3.4-5.0); ALBUMIN/GLOBULIN RATIO 1.4 (1.0-1.7); TOTAL BILIRUBIN 0.2 mg/dL (0.2-1.0); TOTAL PROTEIN 7.3 g/dL (6.4-8.2)
--- NOTE | 2019-08-26 08:05 | EKG ---
[address] [address] Test Date: 2019-08-26 Test Time: 03:52:42 Pat Name: RONALD MARLOW Department: Room: Gender: Heel Sander: : 1995 Requested By: RABIA YUAN Order Number: [id number] Reading MD: Bill High MD Measurements Intervals [place] Rate: P: IA: QRS: QRSD: T: QT: QTc: Interpretive Statements SR NON-SPECIFIC ST/T CHANGES Electronically Signed On 08-30-2019 13:21:45 CDT by Bill High MD
== END 2019-08-26 05:10 | disposition home or self-care (01) ==
LOC: ER 03:46
DX: F41.9 Anxiety disorder, unspecified (principal); R07.89 Other chest pain; F15.10 Other stimulant abuse, uncomplicated; F12.10 Cannabis abuse, uncomplicated; F32.9 Major depressive disorder, single episode, unspecified; G43.909 Migraine, unspecified, not intractable, without status migrainosus; G89.29 Other chronic pain; F17.210 Nicotine dependence, cigarettes, uncomplicated; Z88.8 Allergy status to other drugs, medicaments and biological substances
CPT/HCPCS: 36415; 71045; 80053; 84484; 85025; 93005; 99285-25; J7030

== ENCOUNTER 2019-09-02 17:51 | Emergency (ER) | payer OTHER ==
--- NOTE | 2019-09-02 18:04 | PHYS DOC ---
Past History Past Medical History: Anxiety, Depression, Migraines, Sciatica, Other Additional Past Medical Histor: Chronic back pain, lumbar myopathy, herniated L4 disc, DRUG ABUSE Past Surgical History: Appendectomy, Tonsillectomy Smoking: Cigarettes Alcohol Use: None Drug Use: Marijuana, Methamphetamine General Adult HPI: HPI: Patient is a 23 year old male who presents with above hx and complaints sore throat. Pt. however decided to not stay at time of check in. Left stated he would come back when more . Pt. did not receive. Exam. Review of Systems: Review of Systems: HENT: Complaintgs of sore throat Heart Score: Risk Factors: Risk Factors: DM, Current or recent (<one month) smoker, HTN, HLP, family history of CAD, obesity. Risk Scores: Score 0 - 3: 2.5% MACE over next 6 weeks - Discharge Home Score 4 - 6: 20.3% MACE over next 6 weeks - Admit for Clinical Observation Score 7 - 10: 72.7% MACE over next 6 weeks - Early Invasive Strategies Allergies: Allergies: Allergies Coded Allergies Type Severity Reaction Last Updated Verified metoclopramide Allergy Intermediate 01/09/19 Yes Physical Exam: PE: Left before exam. EKG: EKG: [] Radiology/Procedures: Radiology/Procedures: [] Course & Med Decision Making: Course & Med Decision Making Pertinent Labs and Imaging studies reviewed. (See chart for details) Pt. left before complete check in and coming back to room. [] Dragon Disclaimer: Dragon Disclaimer: This electronic medical record was generated, in whole or in part, using a voice recognition dictation system. Departure Departure: Disposition: 01 HOME/RESIDENCE PRIOR TO ADM Condition: STABLE Referrals: TERRANCE CHAIREZ MD (PCP) Justification of Admission: Justification of Admission: Justification of Admission Dx: N/A Dragon Disclaimer This chart was dictated in whole or in part using Voice Recognition software in a busy, high-work load, and often noisy Emergency Department environment. It may contain unintended and wholly unrecognized errors or omissions. GOPI HENAO MD Sep 02, 2019 18:04
== END 2019-09-02 17:55 | disposition left against medical advice (07) ==
LOC: ER 17:51
DX: J02.9 Acute pharyngitis, unspecified (principal); G43.909 Migraine, unspecified, not intractable, without status migrainosus; G89.29 Other chronic pain; F17.210 Nicotine dependence, cigarettes, uncomplicated; Z88.8 Allergy status to other drugs, medicaments and biological substances

== ENCOUNTER 2020-01-02 17:02 | Emergency (ER) | payer OTHER ==
[~2020-01-02] VITALS: Ht 182.9 cm; Wt 84.8 kg
[2020-01-02 17:11] VITALS: BP 145/92
--- NOTE | 2020-01-02 17:27 | PHYS DOC ---
Past History Past Medical History: Anxiety, Depression, Migraines, Sciatica, Other Additional Past Medical Histor: Chronic back pain, lumbar myopathy, herniated L4 disc, DRUG ABUSE Past Surgical History: Appendectomy, Tonsillectomy Smoking: Cigarettes Alcohol Use: None Drug Use: Marijuana, Methamphetamine General Adult EDM: Chief Complaint: DRUG ABUSE HPI: HPI: 24-year-old milligrams with agitation if you like he is "wants to crawl up the skin". He was seen at [facility] last night after having some "bad methamphetamines" and was given Haldol. Denies any further drug use or hallucinations. Review of Systems: Review of Systems: Constitutional: Denies fever or chills Eyes: Denies change in visual acuity HENT: Denies nasal congestion or sore throat Respiratory: Denies cough or shortness of breath Cardiovascular: Denies chest pain or edema GI: Denies abdominal pain, nausea, vomiting, bloody stools or diarrhea : Denies dysuria Musculoskeletal: Denies back pain or joint pain Integument: Denies rash Neurologic: Denies headache, focal weakness or sensory changes Endocrine: Denies polyuria or polydipsia Lymphatic: Denies swollen glands Psychiatric: Denies depression or anxiety Heart Score: Risk Factors: Risk Factors: DM, Current or recent (<one month) smoker, HTN, HLP, family history of CAD, obesity. Risk Scores: Score 0 - 3: 2.5% MACE over next 6 weeks - Discharge Home Score 4 - 6: 20.3% MACE over next 6 weeks - Admit for Clinical Observation Score 7 - 10: 72.7% MACE over next 6 weeks - Early Invasive Strategies Allergies: Allergies: Allergies Coded Allergies Type Severity Reaction Last Updated Verified metoclopramide Allergy Intermediate 01/09/19 Yes Physical Exam: PE: Constitutional: Well developed, well nourished, no acute distress, non-toxic appearance. [] HENT: Normocephalic, atraumatic, bilateral external ears normal, oropharynx moist, no oral exudates, nose normal. [] Eyes: PERRLA, EOMI, conjunctiva normal, no discharge. [] Neck: Normal range of motion, no tenderness, supple, no stridor. [] Cardiovascular:Heart rate regular rhythm, no murmur [] Lungs & Thorax: Bilateral breath sounds clear to auscultation [] Abdomen: Bowel sounds normal, soft, no tenderness, no masses, no pulsatile masses. [] Skin: Warm, dry, no erythema, no rash. [] Back: No tenderness, no CVA tenderness. [] Extremities: No tenderness, no cyanosis, no clubbing, ROM intact, no edema. [] Neurologic: Alert and oriented X 3, normal motor function, normal sensory function, no focal deficits noted. [] Psychologic: Affect normal, judgement normal, mood normal. [] Current Patient Data: Vital Signs: Vital Signs Date Time Temp Pulse Resp B/P (MAP) Pulse Ox O2 Delivery O2 Flow Rate FiO2 01/02/20 17:11 97.9 86 16 145/92 (109) 98 Room Air EKG: EKG: [] Radiology/Procedures: Radiology/Procedures: [] Course & Med Decision Making: Course & Med Decision Making Given dose of benzodiazepines in emergency department. Signs stable, alert and oriented no indication for further work-up. [] Dragon Disclaimer: Dragon Disclaimer: This electronic medical record was generated, in whole or in part, using a voice recognition dictation system. Departure Departure: Disposition: 01 DC HOME SELF CARE/HOMELESS Condition: STABLE Referrals: TERRANCE CHAIREZ MD (PCP) WENDY ALEMAN MD Jan 02, 2020 17:27
[2020-01-02] MEDS ORDERED: diazePAM 2 MG TABLET. PO ONE (17:30)
== END 2020-01-02 17:55 | disposition home or self-care (01) ==
LOC: ER 17:02
DX: R45.1 Restlessness and agitation (principal); F41.9 Anxiety disorder, unspecified; F32.9 Major depressive disorder, single episode, unspecified; G43.909 Migraine, unspecified, not intractable, without status migrainosus; G89.29 Other chronic pain; F17.210 Nicotine dependence, cigarettes, uncomplicated; F12.10 Cannabis abuse, uncomplicated; F15.10 Other stimulant abuse, uncomplicated; Z88.8 Allergy status to other drugs, medicaments and biological substances
CPT/HCPCS: 99283

== ENCOUNTER 2020-01-25 20:03 | Emergency (ER) | payer OTHER ==
[~2020-01-25] VITALS: Ht 182.9 cm; Wt 84.8 kg
[2020-01-25 20:05] VITALS: BP 134/84
== END 2020-01-25 21:05 | disposition left against medical advice (07) ==
LOC: ER 20:03
DX: R22.33 Localized swelling, mass and lump, upper limb, bilateral (principal); R22.43 Localized swelling, mass and lump, lower limb, bilateral; Z53.21 Procedure and treatment not carried out due to patient leaving prior to being seen by health care provider